=== PATIENT | male | born 2000 | race Hispanic/Latino ===

== ENCOUNTER 2022-10-28 16:25 | Emergency (ER) | payer SELFPAY ==
[~2022-10-28] VITALS: Ht 137.2 cm; Wt 90.0 kg
[~2022-10-28 16:25] MED LIST: NO HOME MEDS
[2022-10-28 16:33] VITALS: BP 145/77
[2022-10-28] MEDS ORDERED: VOLTAREN1%GEL TOP (17:32)
[2022-10-28] MEDS ORDERED: FLEXERIL5 M1 PO (17:32)
[2022-10-28 17:51] VITALS: BP 145/77
== END 2022-10-28 18:15 | disposition home or self-care (01) | DRG 552 ==
LOC: ED 16:25
DX: M54.50 Low back pain, unspecified (principal)